=== PATIENT | male | born 1990 | race Caucasian/White ===

== ENCOUNTER 2023-09-22 19:08 | Emergency (ER) | payer OTHER, SELFPAY ==
[2023-09-22 19:14] VITALS: BP 142/68; PULSE 86; RESP 18; TEMP 36.7; O2SAT 99; BMI 32.5
--- NOTE | 2023-09-22 19:24 | ED_ITS ---
HPI - General Adult General Date Seen: 09/22/23 Chief complaint: Skin/Abscess/Foreign Body Stated complaint: bee sting, allergic reaction Time Seen by Provider: 09/22/23 19:23 History of Present Illness HPI narrative: 33 yo generally healthy male who does have a history of allergic reaction to bee sting in the past (but has subsequently had other Hymenoptera envenomation is without significant reaction) presenting to the ER today for redness and swelling of the skin on his right shoulder after a bee sting that occurred this evening. He was stung by a bee sting about an hour prior to arrival at home. He took some meloxicam because with anti-inflammatory. He noticed that he had redness and swelling extending from the bee sting site on the lateral deltoid of his right shoulder all the way across his right trapezius almost to the midline of his upper back and a little bit of swelling anteriorly on the deltoid. No other symptoms. No other hives. No itching. No swelling in his mouth or throat. No trouble breathing. No abdominal pain. No lightheadedness or dizziness. The patient [facility] and [facility] and was told to come here because the swelling on his shoulder was close to his neck. He was not sure if he should come in because he is not having other symptoms of allergic reaction this time. Related Data Home Medications ?Medication ?Instructions ?Recorded ?Confirmed No Known Home Medications 09/22/23 09/22/23 Allergies Allergy/AdvReac Type Severity Reaction Status Date / Time bee venom protein (honey bee) Allergy Intermediate Rash Verified 09/22/23 19:14 [facility] Social History Smoking Status: Current every day smoker Second hand tobacco smoke exposure: Yes How often do you have a drink containing alcohol: never AUDIT-C Alcohol total score: 0 Non-prescribed substance use: marijuana (any form) Exam Narrative: Exam Narrative: Constitutional: Appears well-developed and well-nourished. Alert. Conversant. Non toxic. HENT: Head: Atraumatic. Nose: Nose normal. Mouth/Throat: Oral mucosa is clear and moist. no trismus. Pharynx normal. Tonsils symmetric. No tonsillar enlargement, erythema, or exudate. Eyes: Conjunctivae normal. EOM normal. Pupils equal, round, and reactive to light. No scleral icterus. Neck: Normal range of motion. Neck supple. No tracheal deviation present. Cardiovascular: Normal rate, regular rhythm. No gallop. No friction rub. No murmur heard. Symmetric radial artery pulses Pulmonary/Chest: Effort normal. No stridor. No respiratory distress. No wheezes. No rales. No rhonchi . No tenderness. Musculoskeletal: RUE: Normal range of motion. No tenderness. No deformity LUE: Normal range of motion. No tenderness. No deformity RLE: Normal range of motion. No edema. No tenderness. No deformity LLE: Normal range of motion. No edema. No tenderness. No deformity Lymph: No cervical adenopathy. Neurological: Alert and oriented to person, place, and time. Normal strength. CN II-VII intact. No sensory deficit. GCS eye subscore is 4. GCS verbal subscore is 5. GCS motor subscore is 6. Normal coordination Skin: He has erythema on the right shoulder over the deltoid surrounding his bee sting site. I do not see any visible or palpable sitting or residual. There is also spreading erythema onto the right posterior shoulder/trapezius. No other areas of erythema. No other hives. Skin is warm and dry. No rash noted. No pallor. Normal capillary refill. Psychiatric: Normal mood. Normal affect. Const: Vital Signs, click to edit/add: Vital Signs - 24 hr 09/22/23 19:14 09/22/23 19:42 Temperature 98.0 F Pulse Rate [Right Pulse Oximeter] 86 Respiratory Rate 18 Blood Pressure [Ri ght Upper Arm] 142/68 H Pulse Oximetry 99 99 Oxygen Delivery Me thod Room Air Course Course ED Course: Recheck-doing well. Pain is fading. Still has some redness on his shoulder and posterior upper back but nothing spreading. No other signs of allergic reaction. Vital Signs Vital signs: Initial Vital Signs Temperature 98.0 F 09/22/23 19:14 Temperature Source Temporal Artery Scan 09/22/23 19:14 Pulse Rate 86 09/22/23 19:14 Respiratory Rate 18 09/22/23 19:14 Blood Pressure 142/68 H 09/22/23 19:14 Blood Pressure Mean 92 09/22/23 19:14 Blood Pressure Position Sitting 09/22/23 19:14 Pulse Oximetry 99 09/22/23 19:14 Oxygen Delivery Method Room Air 09/22/23 19:14 Vital Signs Temperature 98.0 F 09/22/23 19:14 Pulse Rate 86 09/22/23 19:14 Respiratory Rate 18 09/22/23 19:14 Blood Pressure 142/68 H 09/22/23 19:14 Pulse Oximetry 99 09/22/23 19:14 Oxygen Delivery Method Room Air 09/22/23 19:14 Temperature 98.0 F 09/22/23 19:14 Pulse Rate 86 09/22/23 19:14 Respiratory Rate 18 09/22/23 19:14 Blood Pressure 142/68 H 09/22/23 19:14 Pulse Oximetry 99 09/22/23 19:42 Oxygen Delivery Method Room Air 09/22/23 19:14 Medications Administered Medications: Generic Name Dose Route Start Last Admin Trade Name Leightonq PRN Reason Stop Dose Admin Diphenhydramine HCl 25 mg 09/22/23 19:33 09/22/23 19:36 Diphenhydramine 25 Mg Capsule PO 09/22/23 19:34 25 mg ONCE ONE Administration Medical Decision Making [facility] Narrative Medical decision making narrative: This patient presents for evaluation of a painful red swollen area on his right shoulder after a bee sting tonight. He has a history of allergic reactions to bee stings in the past and had a bee sting tonight. He is having a fairly large local reaction but no other symptoms of systemic anaphylaxis. Other than the reddened area around the bee sting, no other hives. No airway involvement, bronchospasm, GI symptoms, hypotension, or other sign of anaphylaxis. Patient was treated here with medications as noted above. Symptoms improved after meds. Will send home . He already has an EpiPen (has it with him) and he has all the adequate antihistamines at home. Would continue with NSAIDs and and dose means for the next couple of days. Potential for evolving reaction was discussed. Development of anaphylactic symptoms were discussed with patient and they were instructed to inject epi-pen and call 911 should these symptoms occur. Given lack of serious systemic symptoms, lack of respiratory difficulty and no oral or pharyngeal swelling, would not admit at this time for anaphylaxis. There is no signs of anaphylactic shock. Discharge Plan Discharge Clinical Impression: Bee sting allergy Patient Disposition: Home, Self-Care Condition: Stable Instructions: Insect Bite or Sting (ED), Allergies (ED) Additional Instructions: As we discussed for the next 48-72 hours you can use nonsteroidal anti-i nflammatories such as meloxicam or ibuprofen as well as antihistamine such as Benadryl or Zyrtec to help treat the area of redness and swelling on your shoulder. If you have others symptoms of a system wide allergic reaction such as hives and other parts of your body, swelling in your throat, trouble breathing, dizzy spells or lightheadedness, abdominal pain or nausea, or vomiting, please return to the ER immediately and/or use your EpiPen and call 911. Prescriptions: No Action No Known Home Medications Follow Up/Referrals: Provider,Not a Local [Primary Care Provider] - Stand Alone Forms: General [employer] Info Instructions
[2023-09-22] MEDS: diphenhydrAMINE 25 MG CAPSULE PO (19:36)
[2023-09-22 19:42] VITALS: O2SAT 99
[2023-09-22 20:18] VITALS: BP 132/78; PULSE 79; RESP 18; TEMP 36.7; O2SAT 99
[2023-09-22 20:19] VITALS: BP 132/78; PULSE 79; RESP 18; TEMP 36.7
== END 2023-09-22 20:19 | disposition home or self-care (01) ==
PROVIDERS: Emergency Provider Emergency Medicine
DX: T63.441A Toxic effect of venom of bees, accidental (unintentional), initial encounter (principal)
CPT/HCPCS: 94761; 99282; A9270